=== PATIENT | female | born 1970 | race Caucasian/White ===

== ENCOUNTER 2019-11-19 19:37 | Emergency (ER) | payer OTHER, SELFPAY ==
[2019-11-19 19:42] VITALS: BP 146/82; PULSE 75; RESP 16; TEMP 36.4; O2SAT 98; BMI 28.4
--- NOTE | 2019-11-19 19:45 | DI.RAD.S_ITS ---
PROCEDURE: XR SHOULDER LT MIN 2V INDICATIONS: Fall off 15 hands horse TECHNIQUE: 2 views of the shoulder were acquired. COMPARISON: None. FINDINGS: Bones: Nondisplaced lucency is noted within the lateral scapula, near the distal aspect of the clavicle. Soft tissues: No suspicious soft tissue calcifications. IMPRESSION: Nondisplaced scapular fracture. Dictated by: Cuca Fernández M.D. on 11/19/2019 at 20:32 Approved by: Cuca Fernández M.D. on 11/19/2019 at 20:34
--- NOTE | 2019-11-19 19:57 | DI.RAD.S_ITS ---
PROCEDURE: XR FOREARM RT 2V INDICATIONS: fall off a horse TECHNIQUE: 2 views of the forearm were acquired. COMPARISON: [facility], CR, XR ELBOW LT MIN 3V, 11/19/2019, 19:52. FINDINGS: Bones: No fractures or dislocations. No suspicious bony lesions. Soft tissues: No suspicious soft tissue calcifications or masses. IMPRESSION: No visualized acute fracture or dislocation. However, if clinical concern and/or pain persist, short interval imaging followup in 7-10 days is recommended, as occult injury cannot be definitively excluded. Dictated by: Cuca Fernández M.D. on 11/19/2019 at 20:36 Approved by: Cuca Fernández M.D. on 11/19/2019 at 20:37
--- NOTE | 2019-11-19 19:58 | DI.RAD.S_ITS ---
PROCEDURE: XR ELBOW LT MIN 3V INDICATIONS: fall off horse TECHNIQUE: 3 views of the elbow were acquired. COMPARISON: [facility], CR, XR FOREARM LT 2V, 11/19/2019, 19:52. FINDINGS: Bones: No fractures or dislocations. No suspicious bony lesions. Soft tissues: No elbow joint effusion. No suspicious soft tissue calcifications. IMPRESSION: No visualized acute fracture or dislocation. However, if clinical concern and/or pain persist, short interval imaging followup in 7-10 days is recommended, as occult injury cannot be definitively excluded. Dictated by: Cuca Fernández M.D. on 11/19/2019 at 20:36 Approved by: Cuca Fernández M.D. on 11/19/2019 at 20:36
[2019-11-19] MEDS: OXYCODONE/ACETAMINOPHEN 5/325 TABLET 1 TAB PO (20:41)
[2019-11-19] MEDS: IBUPROFEN 400 MG TABLET PO (20:42)
--- NOTE | 2019-11-19 21:40 | ED_ITS ---
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 Not noticing neck pain or significant headache. She also notes some tenderness on the medial aspect of her left thigh where her thigh hit the saddle as she was falling off. There was no loss of consciousness and she was able to stand up immediately afterward. Related Data Home Medications Medication Instructions Recorded Confirmed multivitamin 1 tab PO QAM 11/19/19 11/19/19 Previous Rx's Medication Instructions Recorded oxycodone-acetaminophen [Percocet] 1 tab PO Q6H PRN #20 tab 11/19/19 Allergies Allergy/AdvReac Type Severity Reaction Status Date / Time codeine [CODEINE] AdvReac Intermediate Vomiting Verified 11/19/19 20:41 Review of Systems Review of Systems Narrative: Twenty-five Pertinent positive and negative findings as per HPI Remainder of review of systems is otherwise unremarkable for Constitutional: Fevers, chills, weakness ENT: No sore throat, neck pain, ear pain CV: Chest pain, palpitations, dyspnea on exertion Respiratory: Cough, wheeze, dyspnea GI: Nausea, vomiting, diarrhea, change in bowel habits, black or bloody stools : Dysuria, hematuria, flank pain MS: Muscle weakness, numbness, joint swelling or warmth Skin: Rashes, nonhealing lesions Neuro: Syncope, dizziness, tingling Patient History Medical History (Updated 11/20/19 @ 04:27 by Aretha Alfonso MD) Closed left scapular fracture (Inactive) Surgical History (Updated 10/18/17 @ 06:13 by Conversion Provider) Status post tubal ligation Social History Smoking Status: Never smoker Smoking Status: Never smoker alcohol intake frequency: a few times a month Substance Use Type: does not use Exam Narrative Exam Narrative: General: Alert appropriate in no acute distress Respiratory: Able to speak in full sentences, no obvious respiratory distress Skin: No obvious rashes, warm and dry Neurologic: Grossly intact no obvious asymmetries or abnormalities Psych, appropriate insight and affect, cooperative extremity: L shoulder pain with full ROM at shoulder, elbow and wrist. No tenderness to clavicle Initial Vital Signs Initial Vital Signs: Vital Signs Temperature 97.6 F 11/19/19 19:42 Pulse Rate 75 11/19/19 19:42 Respiratory Rate 16 11/19/19 19:42 Blood Pressure 146/82 H 11/19/19 19:42 Pulse Oximetry 98 11/19/19 19:42 Course Orders Ordered: ED Orders 11/19/19 19:45 XR shoulder LT min 2V Stat 11/19/19 19:57 XR forearm LT 2V Stat 11/19/19 19:58 XR elbow LT min 3V Stat Discontinued Medications Ibuprofen (Advil) 400 mg PO NOW ONE Stop: 11/19/19 20:37 Last Admin: 11/19/19 20:42 Dose: 400 mg Documented by: UJNO Oxycodone/Acetaminophen (Percocet 5/325) 1 tab PO NOW ONE Stop: 11/19/19 20:37 Last Admin: 11/19/19 20:41 Dose: 1 tab Documented by: JUNO Oxycodone/Acetaminophen (Endocet 5/325 Prepack) 1 bottle MISC SEEINSTR ONE Stop: 11/19/19 21:54 Last Admin: 11/19/19 22:04 Dose: 1 bottle Documented by: MICKY Vital Signs Vital signs: Vital Signs - 8 hr 11/19/19 19:42 Temperature 97.6 F Pulse Rate 75 Respiratory Rate 16 Blood Pressure 146/82 H Pulse Oximetry 98 MDM - Trauma Medical Records Attestation: I reviewed the patient's medical records. Imaging Data Elbow x-ray: Radiologist's Impression: IMPRESSION: No visualized acute fracture or dislocation. However, if clinical concern and/or pain persist, short interval imaging followup in 7-10 days is recommended, as occult injury cannot be definitively excluded. Dictated by: Cuca Fernández M.D. on 11/19/2019 at 20:36 Forearm x-ray: Radiologist's Impression: IMPRESSION: No visualized acute fracture or dislocation. However, if clinical concern and/or pain persist, short interval imaging followup in 7-10 days is recommended, as occult injury cannot be definitively excluded. Dictated by: Cuca Fernández M.D. on 11/19/2019 at 20:36 Shoulder x-ray: Radiologist's Impression: IMPRESSION: Nondisplaced scapular fracture. Dictated by: Cuca Fernández M.D. on 11/19/2019 at 20:32 MDM Narrative Medical decision making narrative: 49-year-old woman with a fall from her horse suffering a scapular fracture with no other evident trauma. She is placed in a sling. Pain is better controlled. Refer to ortho for definitive fracture care. She is safe for home discharge Discharge Plan Departure Patient Disposition: Home Clinical Impression: Closed left scapular fracture Qualifiers: Encounter type: initial encounter Scapula location: body Fracture alignment: nondisplaced Qualified Code(s): S42.115A - Nondisplaced fracture of body of scapula, left shoulder, initial encounter for closed fracture Discharge Date/Time: 11/19/19 22:08 Instructions: DI for Scapula Fracture Activity Restrictions/Additional Instructions: Thank you for coming in You have a scapula (shoulder blade) fracture. You did not break your collarbone or your arm. This is going to be very tender and it is going to get worse over the next 2 days. You likely are going to find new places that hurt as well. Using 400 mg of ibuprofen (2 [id number] pills) and 1 Tylenol every 6 hours can be very helpful in controlling pain. For severe pain you can use 400mg of ibuprofen and 1 Percocet. Ice and immobilization with a sling will be very helpful in controlling the pain. For definitive fracture control you will need to be seen by our orthopedic carrizales jasmin. Dr. Anderson, with [facility], is on-call this evening. Please contact his office tomorrow to schedule an appointment to follow-up with your scapular fracture. I hope you heal quickly. Prescriptions: New oxycodone-acetaminophen [Percocet] 5-325 mg tablet 1 tab PO Q6H PRN (Reason: pain) Qty: 20 RF: 0 No Action multivitamin Tablet 1 tab PO QAM RF: 0 Referrals: Angie Viera MD [Primary Care Provider] -
[2019-11-19] MEDS: OXYCODONE/APAP 5/325 PREPACK 1 BOTTLE MISC (22:04)
== END 2019-11-19 22:08 | disposition home or self-care (01) ==
PROVIDERS: Emergency Provider Emergency Medicine; PCP Specialist
DX: S42.115A Nondisplaced fracture of body of scapula, left shoulder, initial encounter for closed fracture (principal); V80.010A Animal-rider injured by fall from or being thrown from horse in noncollision accident, initial encounter
CPT/HCPCS: 73030; 73080; 73090; 99283; 99284